=== PATIENT | male | born 1960 | race Caucasian/White ===

== ENCOUNTER 2019-01-02 05:52 | Day surgery (SDC) | payer OTHER ==
[2019-01-02] MEDS ORDERED: PROPOFOL 200 MG INJ (07:00)
[2019-01-02] MEDS ORDERED: PROPOFOL 60 ML (07:54)
[2019-01-02] MEDS ORDERED: LIDOCAINE 2% (SDV) 5 ML INJ (07:54)
[2019-01-02] MEDS ORDERED: EPHEDrine SULFATE 50 MG/5 ML SYG IV (08:00)
[2019-01-02] MEDS ORDERED: hydrALAzine 20 MG INJ IV (08:00)
[2019-01-02] MEDS ORDERED: ONDANSETRON 4 MG INJ IV (08:00)
[2019-01-02] MEDS ORDERED: LABETALOL HCL 20MG INJ IV (08:00)
== END 2019-01-02 09:38 | disposition home or self-care (01) ==
LOC: GIL 05:52
DX: K92.1 Melena (principal); D12.5 Benign neoplasm of sigmoid colon; K64.8 Other hemorrhoids; K64.4 Residual hemorrhoidal skin tags
CPT/HCPCS: 43239; 88305

== ENCOUNTER 2019-03-27 11:07 | Day surgery (SDC) | payer OTHER ==
[2019-03-27] MEDS ORDERED: PROPOFOL 60 ML (13:36)
== END 2019-03-27 15:45 | disposition home or self-care (01) ==
LOC: GIL 11:07
DX: K92.1 Melena (principal); K64.8 Other hemorrhoids; K64.4 Residual hemorrhoidal skin tags; K57.30 Diverticulosis of large intestine without perforation or abscess without bleeding
CPT/HCPCS: 45378